=== PATIENT | female | born 1995 | race Caucasian/White ===

== ENCOUNTER 2019-09-15 21:10 | Emergency (ER) | payer OTHER ==
[~2019-09-15] VITALS: Ht 157.5 cm; Wt 56.4 kg
[2019-09-15 22:06] LABS: URINE PREG TEST NEGATIVE (NEGATIVE)
[2019-09-15 22:09] LABS: BASO # 0.1 10^3/uL (0.0-0.2); BASO % 0.7 % (0.0-1.0); EOS # 0.6 10^3/uL (0.0-0.5); EOS % 5.8 % (0.0-3.0); HEMATOCRIT 42.2 % (36.0-47.0); HEMOGLOBIN 13.9 g/dl (12.0-15.5); LYMPH % 38.6 % (24.0-44.0); MEAN CORPUSCULAR HEMOGLOBIN 31.2 pg (27.0-33.0); MEAN CORPUSCULAR HGB CONC 32.9 g/dl (32.0-36.5); MEAN CORPUSCULAR VOLUME 94.6 fl (80.0-96.0); MONO # 0.9 10^3/uL (0.0-0.8); MONO % 8.9 % (0.0-5.0); NEUTROPHILS # 4.8 10^3/uL (1.5-8.5); NEUTROPHILS % 45.7 % (36.0-66.0); PLATELET COUNT, AUTOMATED 217 10^3/uL (150-450); RED BLOOD COUNT 4.46 10^6/uL (4.00-5.40); WHITE BLOOD COUNT 10.4 10^3/uL (4.0-10.0)
[2019-09-15 22:34] LABS: ALBUMIN 4.2 GM/DL (3.2-5.2); BILIRUBIN,DIRECT 0.1 MG/DL (0.0-0.2); BILIRUBIN,TOTAL 0.5 MG/DL (0.2-1.0); TOTAL PROTEIN 7.4 GM/DL (6.4-8.2)
[2019-09-15] MEDS ORDERED: ISOVUE-370 76% 100ML VIAL (Q9967) As Ordered ONE (23:55)
[2019-09-16] MEDS ORDERED: DICYCLOMINE 10 MG CAP PO ONE
[2019-09-16] MEDS ORDERED: GI COCKTAIL 50ML BTL(HYOSCYAMINE/MAALOX/LIDOCAINE VISCOUS)(1:3:1) PO ONE
[2019-09-16] MEDS ORDERED: ONDANSETRON 4MG/2ML VIAL (J2405) IV ONE
[2019-09-16] MEDS ORDERED: NS 1,000 ML IV ONE
[2019-09-16 00:31] VITALS: BP 115/75
--- NOTE | 2019-09-16 00:51 | REPVR ---
PROCEDURE INFORMATION: Exam: CT Abdomen And Pelvis With Contrast Exam date and time: 09/15/2019 11:48 PM Age: 23 years old Clinical indication: Abdominal pain; Generalized; Additional info: Epigastric and rlq abd pain, nausea TECHNIQUE: Imaging protocol: Computed tomography of the abdomen and pelvis with intravenous contrast. Radiation optimization: All CT scans at this facility use at least one of these dose optimization techniques: automated exposure control; mA and/or kV adjustment per patient size (includes targeted exams where dose is matched to clinical indication); or iterative reconstruction. Contrast material: ISO; Contrast volume: 100 ml; Contrast route: AC; COMPARISON: No relevant prior studies available. FINDINGS: Lungs: The imaged lung bases are clear. Heart: No cardiomegaly. No pericardial effusion. Diaphragm: Intact. Liver: Unremarkable. No liver lesion is seen. The contour of the liver is smooth. No hepatomegaly is noted. Gallbladder and bile ducts: No calcified gallstones are seen. No gallbladder wall thickening, pericholecystic fluid, or pericholecystic inflammatory changes are identified. No dilation of the intrahepatic or extrahepatic bile ducts is noted. Pancreas: Normal. No ductal dilation. There is no inflammatory fat stranding around the pancreas to suggest acute pancreatitis. Spleen: Normal. No splenomegaly. Adrenals: Normal. No mass. Kidneys and ureters: The kidneys are normal in appearance. No renal lesion is identified. No calculi are seen in the kidneys or ureters. There is no hydronephrosis or hydroureter. There are no wedge-shaped areas of low attenuation in the kidneys to suggest pyelonephritis. There is no renal abscess or perinephric fluid collection. Stomach and bowel: There is no evidence for a bowel obstruction, diverticulosis, diverticulitis, colitis, pneumatosis intestinalis, intussusception, volvulus, or perforated viscus. Appendix: There is intraluminal high density within the appendix, which may represent prior ingested enteric contrast material or appendicoliths. The retrocecal appendix is not dilated and there is no inflammatory fat stranding or fluid around the appendix to indicate appendicitis. Intraperitoneal space: Unremarkable. No fluid collection. No free air. Retroperitoneal space: Unremarkable. No fluid collection. No mass. Vasculature: The abdominal aorta is patent, normal in caliber, and there is no dissection. The renal arteries, celiac artery, superior mesenteric artery, inferior mesenteric artery, iliac arteries, and common femoral arteries are patent. The iliac veins, inferior vena cava, hepatic veins, portal veins, splenic vein, superior mesenteric vein, inferior mesenteric vein, and renal veins are patent. Lymph nodes: Normal. No enlarged lymph nodes. Bladder: Unremarkable. No calculi or masses are noted in the bladder. Reproductive: The uterus is retroverted. There is a 2 cm follicular cyst in the right ovary for which follow-up is not necessary. The left ovary is unremarkable. No tubo-ovarian abscess or adnexal mass is noted. Bones/joints: The imaged bony structures are intact. There is no suspicious osteolytic or osteoblastic lesion. Soft tissues: Unremarkable. No hernia. Incidental note is made of a piercing in the umbilical region. IMPRESSION: No acute findings in the abdomen or pelvis. No evidence for appendicitis. Electronically signed by: Stephon Philip On 09/16/2019 00:50:38 AM
[2019-09-16] MEDS ORDERED: DICY10CA13 PO (01:18)
[2019-09-16] MEDS ORDERED: ZANT150T40 PO (01:18)
== END 2019-09-16 01:34 | disposition home or self-care (01) ==
LOC: M ED 21:10
DX: R10.13 Epigastric pain (principal)
CPT/HCPCS: 74177; 80047; 80076; 81001; 83690; 84703; 85025; 96374; 99284; J2405; Q9967

== ENCOUNTER 2019-09-20 17:25 | Emergency (ER) | payer OTHER ==
[~2019-09-20] VITALS: Ht 157.5 cm; Wt 57.9 kg
[~2019-09-20 17:25] MED LIST: DICY10CA13 PO; ZANT150T40 PO
[2019-09-20] MEDS ORDERED: ACET-683 PO (17:35)
[2019-09-20 17:57] LABS: BASO # 0.1 10^3/uL (0.0-0.2); BASO % 0.9 % (0.0-1.0); EOS # 0.8 10^3/uL (0.0-0.5); EOS % 8.7 % (0.0-3.0); HEMATOCRIT 41.9 % (36.0-47.0); HEMOGLOBIN 13.9 g/dl (12.0-15.5); LYMPH # 3.6 10^3/uL (1.5-5.0); LYMPH % 39.1 % (24.0-44.0); MEAN CORPUSCULAR HEMOGLOBIN 31.5 pg (27.0-33.0); MEAN CORPUSCULAR HGB CONC 33.2 g/dl (32.0-36.5); MONO # 0.8 10^3/uL (0.0-0.8); MONO % 8.9 % (0.0-5.0); NEUTROPHILS # 3.8 10^3/uL (1.5-8.5); NEUTROPHILS % 42.2 % (36.0-66.0); PLATELET COUNT, AUTOMATED 189 10^3/uL (150-450); RED BLOOD COUNT 4.41 10^6/uL (4.00-5.40); WHITE BLOOD COUNT 9.1 10^3/uL (4.0-10.0)
[2019-09-20] MEDS ORDERED: PANTOPRAZOLE 40MG INJ (PROTONIX) (C9113) IV ONE (18:15)
[2019-09-20] MEDS ORDERED: GI COCKTAIL 50ML BTL(HYOSCYAMINE/MAALOX/LIDOCAINE VISCOUS)(1:3:1) PO ONE (18:15)
[2019-09-20 18:24] LABS: INFLUENZA A AMPLIFICATION NEGATIVE (NEGATIVE); INFLUENZA B AMPLIFICATION NEGATIVE (NEGATIVE)
[2019-09-20 18:26] LABS: ALBUMIN 4.1 GM/DL (3.2-5.2); ALT/SGPT 15 U/L (12-78); AMYLASE 49 U/L (25-115); BILIRUBIN,DIRECT < 0.1 MG/DL (0.0-0.2); BILIRUBIN,TOTAL 0.2 MG/DL (0.2-1.0); LIPASE 90 U/L (73-393); TOTAL PROTEIN 7.1 GM/DL (6.4-8.2)
[2019-09-20] MEDS ORDERED: PEPC1TAB5 PO (18:57)
[2019-09-20] MEDS ORDERED: ONDA4TAB6 PO (18:57)
[2019-09-20] MEDS ORDERED: MIRA3350 PO (18:57)
[2019-09-20 19:07] VITALS: BP 123/72
== END 2019-09-20 19:09 | disposition home or self-care (01) ==
LOC: M ED 17:25
DX: K21.9 Gastro-esophageal reflux disease without esophagitis (principal); Z91.018 Allergy to other foods
CPT/HCPCS: 80047; 80076; 82150; 83690; 85025; 87502; 96374; 99284; C9113

== ENCOUNTER 2019-11-08 20:16 | Emergency (ER) | payer OTHER ==
[~2019-11-08] VITALS: Ht 157.5 cm; Wt 56.8 kg
[2019-11-08 20:16] VITALS: BP 146/79
[~2019-11-08 20:16] MED LIST changes: +ACET-683 PO; +MIRA3350 PO; +ONDA4TAB6 PO; +PEPC1TAB5 PO
[2019-11-08] MEDS ORDERED: IBUPROFEN 600 MG TAB PO ONE (21:00)
== END 2019-11-08 21:08 | disposition home or self-care (01) ==
LOC: M ED 20:16
DX: J02.9 Acute pharyngitis, unspecified (principal); R51 Headache

== ENCOUNTER → 2020-09-15 | Outpatient (REF) | payer OTHER ==
[2020-09-15 17:40] LABS: APPEARANCE, URINE CLEAR (CLEAR); BACTERIA, URINE AUTO NEGATIVE (NEGATIVE); BILIRUBIN, URINE AUTO NEGATIVE (NEGATIVE); BLOOD, URINE BLOOD NEGATIVE (NEGATIVE); COLOR, URINE YELLOW (YELLOW); GLUCOSE, URINE (UA) AUTO NEGATIVE (NEGATIVE); KETONE, URINE AUTO NEGATIVE (NEGATIVE); LEUKOCYTE ESTERASE, URINE AUTO NEGATIVE (NEGATIVE); NITRITE, URINE AUTO NEGATIVE (NEGATIVE); PROTEIN, URINE AUTO NEGATIVE (NEGATIVE); RBC, URINE AUTO 1 /HPF (0-3); SPECIFIC GRAVITY URINE AUTO 1.011 (1.002-1.035); SQUAMOUS EPITHELIAL CELL UR AU 1 /HPF (0-6); UROBILINOGEN, URINE AUTO 0.2 mg/dL (0.0-2.0); WBC, URINE AUTO 0 /HPF (0-3)
[2020-09-15 18:06] LABS: CHLAMYDIA DNA AMPLIFICATION NEGATIVE (NEGATIVE); GC DNA AMPLIFICATION NEGATIVE (NEGATIVE)
== END ==
LOC: M SFHCLERA 16:06
PROVIDERS: ATTEND Student in an Organized Health Care Education/Training Program
DX: R10.2 Pelvic and perineal pain (principal)

== ENCOUNTER → 2020-10-10 | Outpatient (CLI) | payer OTHER ==
--- NOTE | 2020-10-10 18:12 | REP ---
INDICATION: PELVIC PAIN ? CYSTS. COMPARISON: None. TECHNIQUE: Transabdominal and transvaginal scanning performed. FINDINGS: Uterine dimensions are 6.6 x 3.4 x 3.9 cm. Endometrial echo is 6 mm in AP dimension and centrally placed. The bladder measures 13.9 x 11.1 x 9.9. The right ovary has dimensions of 2.7 x 1.8 x 2.7 cm. It's Doppler flow is normal with a resistive index of 0.73. The left ovary dimensions are 6.4 x 3.6 x 4.6 cm. It's Doppler flow was normal with resistive index of 0.73. There is an anechoic cyst of the left ovary containing a thin internal septation measuring 5.8 x 4.7 x 2.8 cm. No free fluid is seen in the cul-de-sac. IMPRESSION: Anechoic cyst left ovary with thin internal septation having a maximum diameter 5.8 cm. This is almost certainly benign. Recommend follow-up ultrasound in 6-12 months. <Electronically signed by Hunter Lopez > 10/10/20 [id number]
== END ==
LOC: M RAD 14:59
PROVIDERS: ATTEND Student in an Organized Health Care Education/Training Program
DX: N83.202 Unspecified ovarian cyst, left side (principal)